=== PATIENT | male | born 1935 | race Caucasian/White ===

== ENCOUNTER 2016-11-13 14:51 | Emergency (ER) | payer MEDICARE, OTHER ==
[~2016-11-13 14:51] MED LIST: ACTOPLUS M15 MG/500 PO; ACTOPLUS M15 MG/850 PO; AMARYL2 PO; AMARYL4 PO; AMB10 PO; ASAB PO; BENTYL10 PO; BUM1 PO; CIP2 PO; CO Q-10100 MG PO; COZ25 PO; CRANBERRY1 TAB OR; CYANO1000T PO; DONNATAL TAB1 TAB OR; DONNATAL TAB1 TAB PO; FLOMAX4 PO; IRON325 MG PO; LOP25 PO; MEPHYTON 5 MG TA5 MG PO; MULTIPLE VIT PO; MULTIVIT/MIN PO; NAP250 PO; NORCO1 TA2 PO; PAX10 PO; PCET PO; PRIN10 PO; VALIUM10 MG PO; VITAMIN D31000 UNIT PO; VITE PO; WELLSR100 PO
[2016-11-13 15:09] LABS: BASOPHILS 0.3 %; BASOPHILS ABSOLUTE 0.02 10/3/uL (0.0-0.16); EOSINOPHILS ABSOLUTE 0.07 10/3/uL (0.0-0.53); ER CBC TAT 0 Hrs 03 Mins; IMMATURE GRANULOCYTES 0.3 %; IMMATURE GRANULOCYTES ABSOLUTE 0.02 10/3/uL (0.0-0.11); LYMPHOCYTES 15.5 %; LYMPHOCYTES ABSOLUTE 1.12 10/3/uL (0.67-4.30); MEAN CORPUS HGB CONC 33.5 g/dL (32.0-36.0); MEAN CORPUSCULAR HEMOGLOB 31.5 pg (26.0-34.0); MEAN CORPUSCULAR VOLUME 94.2 fL (80-100); MEAN PLATELET VOLUME 9.5 fL (9.2-13.0); MONOCYTES 5.4 %; MONOCYTES ABSOLUTE 0.39 10/3/uL (0.21-1.20); NEUTROPHILS 77.5 %; PLATELET COUNT 187 10/3/uL (150-400); RBC DISTRIBUTION WIDTH 14.8 % (12.0-16.0); WHITE BLOOD CELLS 7.2 10/3/uL (4.5-10.5)
[2016-11-13 15:14] LABS: HEMATOCRIT 42.1 % (40.0-51.0); HEMOGLOBIN 14.1 g/dL (13.6-17.8); MANUAL DIFF NO %; RED CELL COUNT 4.47 10/6/uL (4.7-6.1)
[2016-11-13 15:20] LABS: PARTIAL THROMBO TIME 29.6 SEC (22.5-37.2); PROTIME (NOT ORD) 13.2 SEC (12.0-14.5)
[2016-11-13 15:26] LABS: BUN (BLOOD UREA NITROGEN) 40 MG/DL (6-23); CALCIUM, SERUM 8.5 MG/DL (8.5-10.4); CHLORIDE, SERUM 95 MMOL/L (96-112); CO2 (CARBON DIOXIDE) 32 MMOL/L (24-34); SODIUM, SERUM 136 MMOL/L (135-148)
[2016-11-13 15:27] LABS: CHEST PAIN PROFILE TAT 0 Hrs 21 Mins; CREATININE 2.78 MG/DL (0.70-1.30); GFR AFRICAN AMERICAN 23 ML/MIN (>=60); GFR NON AFRICAN AMERICAN 20 ML/MIN (>=60); GLUCOSE, SERUM 393 MG/DL (60-99); TROPONIN I 0.09 NG/ML (<0.05)
== END 2016-11-13 19:09 | disposition home or self-care (01) ==
LOC: ER 14:51
PROVIDERS: Emergency Medicine
DX: R00.0 Tachycardia, unspecified (principal); E11.65 Type 2 diabetes mellitus with hyperglycemia; N18.9 Chronic kidney disease, unspecified; I50.9 Heart failure, unspecified; Z87.891 Personal history of nicotine dependence; Z95.0 Presence of cardiac pacemaker; Z79.899 Other long term (current) drug therapy
CPT/HCPCS: 71020; 80048; 83735; 84484; 85025; 85610; 85730; 93005; 96374; 99285; A9270-GY